=== PATIENT | female | born 1985 | race Caucasian/White ===

== ENCOUNTER 2016-07-17 22:57 | Emergency (ER) | payer SELFPAY ==
[2016-07-17 23:03] VITALS: RESP 20
[2016-07-17] MEDS ORDERED: Lidocaine 1% Inj (20ml) ONE (23:21)
[2016-07-18] MEDS ORDERED: Bacitracin 500 Units/gm Oint Foilpak UD ONE (00:21)
[2016-07-18] MEDS ORDERED: Tetanus/Diphtheria Toxoids 0.5 ml Syringe IM ONE (00:30)
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
[2016-07-18 01:06] VITALS: BP 112/70; PULSE 62; TEMP 98.2
[2016-07-18 01:39] VITALS: O2SAT 100
--- NOTE | 2016-07-18 10:57 | RAD ---
PROCEDURE: Left Foot Radiographs. HISTORY: r/o fracture COMPARISON: None. FINDINGS: BONES: Acute fracture base of proximal phalanx left 5th digit. The finding is marked on the study for review. JOINTS: Normal. SOFT TISSUES: Normal. OTHER FINDINGS: None. IMPRESSION: Non articular fracture proximal aspect left 5th metatarsal. Concordant results with the preliminary interpretation rendered by the emergency department physician procedure.
== END 2016-07-18 01:38 | disposition home or self-care (01) ==
LOC: C.ER 22:57
DX: S92.512B Displaced fracture of proximal phalanx of left lesser toe(s), initial encounter for open fracture (principal); Y04.8XXA Assault by other bodily force, initial encounter; Y92.008 Other place in unspecified non-institutional (private) residence as the place of occurrence of the external cause